=== PATIENT | male | born 1990 | race Caucasian/White ===

== ENCOUNTER 2017-01-02 21:14 | Emergency (ER) | payer SELFPAY ==
[2017-01-02 21:21] VITALS: PULSE 131; BMI 42.5
[2017-01-02] MEDS ORDERED: ACETAMINOPHEN 500 MG TABLET (FP) PO ONE (21:33)
--- NOTE | 2017-01-02 21:34 | PDOC ---
Rapid Medical Evaluation Chief Complaint: SIRS, Suspected/Possible Time Seen by Provider: 01/02/17 21:31 Medical Evaluation: Vital Signs Temp Pulse Resp BP Pulse Ox 102.5 F H 131 H 24 152/85 96 01/02/17 21:16 01/02/17 21:16 01/02/17 21:16 01/02/17 21:16 01/02/17 21:16 01/02/17 21:31 I have performed a brief in-person evaluation of this patient. The patient presents with a chief complaint of: Fever, Cough, Headache since Sunday. Pertinent physical exam findings: (-) Nuchal Rigidity, and Photophobia I have ordered the following: Influenza swab. Tylenol 975mg
[2017-01-02 22:19] LABS: BASOPHIL 0.5 % (0-2.0); EOSINOPHIL 0.3 % (0-4.5); MCH 30.3 pg (25.7-33.7); MCHC 34.5 g/dl (32.0-35.9); MEAN PLT VOLUME 8.2 fl (7.5-11.1); PLATELET COUNT 240 K/MM3 (134-434); RDW 13.7 % (11.9-15.9); WHITE BLOOD COUNT 7.6 K/mm3 (4.0-10.0)
[2017-01-02] MEDS ORDERED: SODIUM CHLORIDE 1,000 ML IV STA (23:14)
[2017-01-02] MEDS ORDERED: IBUPROFEN 400 MG TABLET (FP) PO ONE ×2 (23:17→23:45)
[2017-01-02] MEDS ORDERED: OSELTAMIVIR PHOSPHATE 75 MG CAPSULE PO ONE (23:17)
[2017-01-02 23:19] LABS: ALBUMIN 4.1 g/dl (3.4-5.0); ANION GAP 11 (8-16); CALCIUM 9.1 mg/dL (8.5-10.1); CO2 27 mmol/L (21-32); CREATININE 1.1 mg/dL (0.7-1.3); GLUCOSE,RANDOM 121 mg/dL (74-106); SGOT/AST 48 U/L (15-37); SGPT/ALT 98 U/L (12-78)
[2017-01-02 23:21] LABS: ALK PHOS 141 U/L (45-117); BILIRUBIN,TOTAL 0.4 mg/dL (0.2-1.0); TOT PROT 7.6 g/dl (6.4-8.2)
--- NOTE | 2017-01-02 23:23 | PDOC ---
History of Present Illness - General Chief Complaint: SIRS, Suspected/Possible Stated Complaint: FEVER Time Seen by Provider: 01/02/17 22:43 History Source: Patient Exam Limitations: No Limitations - History of Present Illness Initial Comments: 01/02/17 23:18 26yo Male patient w/ PmHx: Morbid Obesity presents to ED c/o fever on and off since Sunday, 104/103.0 oral temp, h/a, coughing, increase phlegm. Patient reports taking Tylenol OTC with no relief. He reports symptoms remained constant so he wanted to be evaluated. He denies CP, Abd pain, Back pain, n/v/d , diff breathing, rash, or any other complaints at this time. Timing/Duration: reports: constant. denies: just prior to arrival, other, changing over time, getting worse, gone now, intermittent, week, yesterday, this afternoon, this evening, this morning Severity: reports: moderate. denies: mild, severe Episode Description: See HPI Possible Cause: No: no prior episodes, other, allergen exposure, chronic episodes, frequent episodes, illness exposure, irritant gases exposure, occasional episodes, smoke exposure, unknown cause Modifying Factors: improves with: coughing, rest. worse with: activity, albuterol inhaler, albuterol nebulizer, antibiotics, lying down, oxygen, other Associated Symptoms: reports: cough, fever/chills, headache. denies: denies symptoms, chest pain/soreness, dizziness, earache, facial pain, lightheadedness , muscle aches, nasal congestion, nasal drainage, shortness of breath, sinus infection, sore throat, wheezing, other Aspirin Received prior to arrival: No: no aspirin today, unknown, 81 mg x 1, 81 mg x 2, 81 mg x 3, 81 mg x 4, 325 mg x 1, provided at home, provided by EMS, provided by ED Past History - Travel Traveled outside of the country in the last 30 days: No Close contact w/someone who was outside of country & ill: No - Past Medical History Allergies/Adverse Reactions: Allergies Allergy/AdvReac Type Severity Reaction Status Date / Time No Known Allergies Allergy Verified 01/02/17 21:37 Home Medications: Ambulatory Orders Albuterol Sulfate Inhaler - [Ventolin Hfa Inhaler -] 1 - 2 inh PO Q4H PRN #1 inhaler 01/03/17 Amoxicillin/Potassium Clav [Augmentin 875-125 Tablet] 1 each PO Q12H #20 tablet 01/03/17 COPD: No - Suicide/Smoking/Psychosocial Hx Smoking History: Former smoker Have you smoked in the past 12 months: No Information on smoking cessation initiated: No Hx Alcohol Use: No Drug/Substance Use Hx: No Substance Use Type: None Respiratory Specific PMHX - Complaint Specific PMHX Angina: No Bronchitis: No Pneumonia: No Pulmonary Embolus: No TB (Tuberculosis): No Review of Systems - Review of Systems Able to Perform ROS?: Yes Is the patient limited Ghanaian proficient: No Constitutional: Yes: Fever. No: Chills Respiratory: Yes: Cough, Productive cough Cardiac (ROS): No: Chest Pain ABD/GI: No: Diarrhea, Nausea, Poor Appetite, Poor Fluid Intake, Vomiting, Abdominal cramping Musculoskeletal: No: Back Pain, Muscle Weakness, Neck Pain Neurological: Yes: Headache All Other Systems: Reviewed and Negative *Physical Exam - Vital Signs Last Vital Signs Temp Pulse Resp BP Pulse Ox 102.5 F H 131 H 24 152/85 96 01/02/17 21:16 01/02/17 21:16 01/02/17 21:16 01/02/17 21:16 01/02/17 21:16 - Physical Exam General Appearance: Yes: Nourished, Appropriately Dressed HEENT: positive: EOMI, ISHA, Normal ENT Inspection, Normal Voice, Symmetrical, TMs Normal, Pharynx Normal. negative: Pharyngeal Erythema, Tonsillar Exudate, Tonsillar Erythema, Nasal Congestion, Rhinorrhea, Sinus Tenderness, Orbits, TM Bulging, TM Dull, TM Erythema Neck: positive: Trachea midline, Normal Thyroid, Supple. negative: Rigid, Stridor, Lymphadenopathy (R), Lymphadenopathy (L), Tender lateral, Tender midline Respiratory/Chest: positive: Lungs Clear, Normal Breath Sounds. negative: Chest Tender, Respiratory Distress, Accessory Muscle Use, Labored Respiration, Rapid RR, Decreased Breath Sounds, Paradoxal Breathing, Crackles, Rales, Stridor , Wheezing Cardiovascular: positive: Tachycardia. negative: Regular Rhythm, Regular Rate Gastrointestinal/Abdominal: positive: Normal Bowel Sounds, Soft, Distended. negative: Increased Bowel Sounds, Guarding, Rebound, Tenderness, Hernia, Mass Musculoskeletal: positive: Normal Inspection. negative: CVA Tenderness, CVA Tenderness (R), CVA Tenderness (L), Decreased Range of Motion, Vertebral Tenderness Extremity: positive: Normal Capillary Refill, Normal Inspection, Normal Range of Motion. negative: Pelvis Stable, Pedal Edema, Swelling, Calf Tenderness, Erythema, Inflammation Integumentary: positive: Normal Color, Dry, Warm Neurologic: positive: manager small business II-XII NML intact, Fully Oriented, Alert, Normal Mood/ Affect, Normal Response, Motor Strength 06/09 ED Treatment Course - LABORATORY CBC & Chemistry Diagram: 01/02/17 21:33 01/02/17 22:00 - ADDITIONAL ORDERS Additional order review: 01/02/17 22:00 Influenza Types A,B Antigen (KATHY) - Final Nasopharyngeal Swab - Final 01/02/17 21:33 RBC 4.91 MCV 88.0 MCHC 34.5 RDW 13.7 MPV 8.2 Neutrophils % 79.0 Lymphocytes % 11.5 Monocytes % 8.7 Eosinophils % 0.3 Basophils % 0.5 - Medications Given in the ED: ED Medications Discontinued Medications Generic Name Dose Route Start Last Admin Trade Name Freq PRN Reason Stop Dose Admin Acetaminophen 1,000 mg 01/02/17 21:33 01/02/17 21:36 Tylenol - PO 01/02/17 21:34 1,000 mg ONCE ONE Administration *DC/Admit/Observation/Transfer Diagnosis at time of Disposition: Pneumonia and influenza - Discharge Dispostion Disposition: HOME Condition at time of disposition: Improved Admit: No - Prescriptions Prescriptions: Albuterol Sulfate Inhaler - [Ventolin Hfa Inhaler -] 1 - 2 inh PO Q4H PRN #1 inhaler PRN Reason: Trouble Breathing Amoxicillin/Potassium Clav [Augmentin 875-125 Tablet] 1 each PO Q12H #20 tablet - Referrals Referrals: Kevin Mcneill MD [Staff Physician] - - Patient Instructions Printed Discharge Instructions: DI for Atypical Pneumonia Additional Instructions: Follow up with Dr. Mcneill (Internal Medicine) next week. Call to schedule appointment. Take medications as prescribed. Return if symptoms worsen or any concerns for further evaluation. Print Language: SWEDISH - Post Discharge Activity Forms/Work/School Notes: Back to Work
[2017-01-02] MEDS ORDERED: OSELTAMIVIR PHOSPHATE 75 MG CAPSULE ONE (23:45)
[2017-01-03 00:01] VITALS: BP 161/84; TEMP 102.2
[2017-01-03 00:12] LABS: URINE APPEARANCE CLEAR; URINE BILIRUBIN NEGATIVE (NEGATIVE); URINE BLOOD 1+ (NEGATIVE); URINE COLOR ORANGE; URINE GLUCOSE (UA) NEGATIVE (NEGATIVE); URINE KETONE TRACE (NEGATIVE); URINE NITRITE NEGATIVE (NEGATIVE); URINE UROBILINOGEN 0.2 mg/dL (0.2-1.0)
[2017-01-03 00:21] LABS: URINE PROTEIN 1+ (NEGATIVE)
[2017-01-03] MEDS ORDERED: AMOX TR/POT CLAV 875MG/125MG TABLETS (FP) PO ONE (00:53)
--- NOTE | 2017-01-03 00:55 | PDOC ---
*Physical Exam - Vital Signs Last Vital Signs Temp Pulse Resp BP Pulse Ox 102.2 F H 131 H 24 161/84 99 01/02/17 22:35 01/02/17 22:35 01/02/17 22:35 01/02/17 22:35 01/02/17 22:35 ED Treatment Course - LABORATORY CBC & Chemistry Diagram: 01/02/17 21:33 01/02/17 22:00 - ADDITIONAL ORDERS Additional order review: Laboratory Results 01/02/17 01/02/17 01/02/17 23:38 22:40 22:00 Sodium 137 Potassium 4.1 Chloride 99 Carbon Dioxide 27 Anion Gap 11 BUN 8 Creatinine 1.1 Creat Clearance w eGFR > 60 Random Glucose 121 H Lactic Acid 1.4 Calcium 9.1 Total Bilirubin 0.4 AST 48 H ALT 98 H Alkaline Phosphatase 141 H Total Protein 7.6 Albumin 4.1 Urine Color [place] Urine Appearance Clear Urine pH 6.0 Ur Specific [place] 1.025 Urine Protein 1+ H Urine Glucose (UA) Negative Urine Ketones Trace H Urine Blood 1+ H Urine Nitrite Negative Urine Bilirubin Negative Urine Urobilinogen 0.2 01/02/17 22:00 Influenza Types A,B Antigen (KATHY) - Final Nasopharyngeal Swab - Final 01/02/17 21:33 RBC 4.91 MCV 88.0 MCHC 34.5 RDW 13.7 MPV 8.2 Neutrophils % 79.0 Lymphocytes % 11.5 Monocytes % 8.7 Eosinophils % 0.3 Basophils % 0.5 - Medications Given in the ED: ED Medications Discontinued Medications Generic Name Dose Route Start Last Admin Trade Name Freq PRN Reason Stop Dose Admin Acetaminophen 1,000 mg 01/02/17 21:33 01/02/17 21:36 Tylenol - PO 01/02/17 21:34 1,000 mg ONCE ONE Administration Sodium Chloride 1,000 mls @ 1,000 mls/hr 01/02/17 23:14 01/02/17 23:59 Normal Saline - IV 01/03/17 00:13 1,000 mls/hr ASDIR STA Administration Ibuprofen 800 mg 01/02/17 23:17 01/02/17 23:59 Motrin - PO 01/02/17 23:18 800 mg ONCE ONE Administration Oseltamivir Phosphate 75 mg 01/02/17 23:17 01/03/17 00:00 Tamiflu - PO 01/02/17 23:18 75 mg ONCE ONE Administration Medical Decision Making - Medical Decision Making 01/03/17 00:55 agree with care from KETTLE SKIMMER Ronni *DC/Admit/Observation/Transfer Diagnosis at time of Disposition: Pneumonia and influenza - Discharge Dispostion Disposition: HOME Condition at time of disposition: Improved - Prescriptions Prescriptions: Albuterol Sulfate Inhaler - [Ventolin Hfa Inhaler -] 1 - 2 inh PO Q4H PRN #1 inhaler PRN Reason: Trouble Breathing Amoxicillin/Potassium Clav [Augmentin 875-125 Tablet] 1 each PO Q12H #20 tablet - Referrals Referrals: Kevin Mcneill MD [Staff Physician] - - Patient Instructions Printed Discharge Instructions: DI for Atypical Pneumonia Additional Instructions: Follow up with Dr. Mcneill (Internal Medicine) next week. Call to schedule appointment. Take medications as prescribed. Return if symptoms worsen or any concerns for further evaluation. Print Language: PERSIAN - Post Discharge Activity Forms/Work/School Notes: Back to Work
[2017-01-03] MEDS ORDERED: CEFTRIAXONE 2 GM in DEXTROSE 5%-WATER - 100 ML IVPB ONE (00:58)
[2017-01-03] MEDS ORDERED: SODIUM CHLORIDE 500 ML IV STA (00:58)
[2017-01-03] MEDS ORDERED: AZITHROMYCIN IVPB 500 MG in DEXTROSE 5%-WATER - 250 ML IVPB ONE (00:58)
[2017-01-03] MEDS ORDERED: CEFTRIAXONE 1 GM/50 ML BAG ONE (02:08)
[2017-01-03 02:35] LABS: CALCIUM OXALATE CRYSTALS FEW /hpf (NONE SEEN); URINE MUCUS RARE; URINE RBC 19 /hpf (0-3); URINE WBC 2 /hpf (3-5)
[2017-01-03] MEDS ORDERED: AZITHROMYCIN IVPB 250 ML IVPB ONE (03:11)
[2017-01-03 09:07] LABS: URINE LEUK ESTERASE Negative (NEGATIVE)
== END 2017-01-03 03:56 | disposition home or self-care (01) ==
LOC: JER 21:14
DX: J11.00 Influenza due to unidentified influenza virus with unspecified type of pneumonia (principal)
CPT/HCPCS: 36415; 71020-TC; 80053; 81003; 81015; 83605; 85025; 87804; 99283-25

== ENCOUNTER 2019-02-21 21:13 | Emergency (ER) | payer OTHER ==
[2019-02-21 21:20] VITALS: TEMP 98; BMI 52.4
--- NOTE | 2019-02-21 21:22 | PDOC ---
Rapid Medical Evaluation Chief Complaint: Pain Time Seen by Provider: 02/21/19 21:18 Medical Evaluation: Allergies Allergy/AdvReac Type Severity Reaction Status Date / Time No Known Allergies Allergy Verified 01/02/17 21:37 02/21/19 21:18 I have performed a brief in-person evaluation of this patient. The patient presents with a chief complaint of:purulent discharge from umbilicus x 1 year w/ upcoming surgery f/u but wants to come to ED to get it checked per pt. No f/c Pertinent physical exam findings:stable, defer to ED I have ordered the following:nothing The patient will proceed to the ED for further evaluation Discharge Disposition - Diagnosis Umbilical discharge - Referrals - Patient Instructions - Post Discharge Activity
--- NOTE | 2019-02-21 23:42 | PDOC ---
History of Present Illness - General Chief Complaint: Pain Stated Complaint: ABD PAIN Time Seen by Provider: 02/21/19 21:18 - History of Present Illness Initial Comments: The pt is a 28M w/ no reported PMH who presents for bloody drainage at the umbilicus. He reports a year purulent discharge that will intermittently drain serous versus purulent drainage. Today he noticed bloody fluid and thus decided to be evaluated. He denies fevers/chills, abdominal pain, N/V/D, blood in his stool, dysuria, hematuria Pt denies felling any mass or swelling in his abdomen. Denies feculent or urinary type discharge from his umbilicus PMH: Denies PSH: Denies Meds: Denies SH: Denies x3 02/21/19 23:49 Past History - Past Medical History Allergies/Adverse Reactions: Allergies Allergy/AdvReac Type Severity Reaction Status Date / Time No Known Allergies Allergy Verified 02/21/19 21:19 Home Medications: Ambulatory Orders Albuterol Sulfate Inhaler - [Ventolin Hfa Inhaler -] 1 - 2 inh PO Q4H PRN #1 inhaler 01/03/17 Amoxicillin/Potassium Clav [Augmentin 875-125 Tablet] 1 each PO Q12H #20 tablet 01/03/17 Clindamycin [Cleocin -] 300 mg PO Q6HPO #28 capsule 02/22/19 COPD: No - Psycho Social/Smoking Cessation Hx Smoking History: Former smoker Have you smoked in the past 12 months: No Information on smoking cessation initiated: No Hx Alcohol Use: No Drug/Substance Use Hx: No Substance Use Type: None Review of Systems - Review of Systems Able to Perform ROS?: Yes Comments:: GENERAL/CONSTITUTIONAL: No fever or chills. No weakness HEAD, EYES, EARS, NOSE AND THROAT: No change in vision. No change in hearing. No sore throat CARDIOVASCULAR: No chest pain or shortness of breath RESPIRATORY: Denies cough, hemoptysis GASTROINTESTINAL: No nausea, vomiting, or constipation GENITOURINARY: No dysuria, frequency, or change in urination MUSCULOSKELETAL: No joint or muscle swelling or pain. No neck or back pain NEUROLOGIC: No headache, vertigo, loss of consciousness, or change in strength/ sensation ENDOCRINE: No increased thirst. No abnormal weight change HEMATOLOGIC/LYMPHATIC: No anemia, easy bleeding, or history of blood clots ALLERGIC/IMMUNOLOGIC: No hives or skin allergy 02/21/19 23:37 Is the patient limited Czech proficient: No *Physical Exam - Vital Signs Last Vital Signs Temp Pulse Resp BP Pulse Ox 98 F 77 18 143/82 99 02/21/19 21:16 02/21/19 21:16 02/21/19 21:16 02/21/19 21:16 02/21/19 21:16 - Physical Exam GENERAL: Awake, alert, and oriented to person/place/time, in no acute distress HEAD: No signs of trauma, normoc ephalic, atraumatic EYES: PERRLA, EOMI, sclera anicteric, conjunctiva clear ENT: Hearing grossly normal, nares patent, oropharynx clear without exudates. Moist mucosa LUNGS: No distress, speaks in full sentences, clear to auscultation bilaterally HEART: Regular rate and rhythm, normal S1 and S2, no murmurs appreciated, peripheral pulses normal and equal bilaterally ABDOMEN: Soft, protuberant, small amount of blood noted at umbilicus w/o active hemorrhage, no tracking fistula found, no purulent material expressible, nontender, normoactive bowel sounds. No guarding, no rebound EXTREMITIES: Normal inspection, Normal range of motion, no edema. No clubbing or cyanosis NEUROLOGICAL: Cranial nerves II through XII grossly intact. Normal speech, normal gait, no focal sensorimotor deficits SKIN: Warm, Dry 02/21/19 23:41 ED Treatment Course - LABORATORY CBC & Chemistry Diagram: 02/22/19 00:00 02/22/19 00:00 - RADIOLOGY Radiograph Interpretation: THIS IS A PRELIMINARY REPORT FROM [facility] DATE OF SERVICE: 2019-02-22 00:46:01 EXAM: ABDOMEN \T\ PELVIS CT WITH CONTR FINDINGS: Lung bases are clear. The visualized cardiac chambers are normal size and configuration. Normal liver, gallbladder, pancreas, spleen, adrenal glands and kidneys. The stomach and abdominal small and large bowel are normal. There is no aortic aneurysm. There is no significant retroperitoneal lymphadenopathy. There is a tiny fat-containing umbilical hernia with mild soft tissue edema which could represent cellulitis. No abscess or peritoneal involvement. The pelvic small and large bowel are normal. Appendix is normal. The urinary bladder and prostate gland are normal. No pelvic free fluid is identified. There is no significant pelvic lymphadenopathy. IMPRESSION: Tiny fat-containing umbilical hernia and possible mild umbilical cellulitis. 02/22/19 02:31 Medical Decision Making - Medical Decision Making The pt is a 28M w/ no reported PMH who presents for bloody drainage at the umbilicus for 1 day (with 1 year of intermittent purulent bloody drainage). ED Course CMP, CBC, ESR, Coags CT A&P Pt has an appointment established with a general surgeon on 03/03/2019 02/21/19 23:42 CT w/ tiny fat containing umbilical hernia -Pt w/ established general surgery f/u Umbilical cellulitis -Clindamycin 600mg IV once given in ED -Rx for Clinda sent to pt's pharmacy WBC unremarkable No anemia Lytes wnl No HARISH LFTs mildly elevated -Results discussed with patient and need for primary care follow up emphasized Plan for D/C w/ PCP and general surgery f/u Discharge instructions and return precautions given Patient in agreement and verbalized understanding Dispo: Home 02/22/19 02:32 Discharge - Discharge Information Problems reviewed: Yes Clinical Impression/Diagnosis: Umbilical discharge Umbilical hernia Qualifiers: Obstruction and gangrene presence: without obstruction or gangrene Qualified Code(s): K42.9 - Umbilical hernia without obstruction or gangrene Cellulitis Qualifiers: Site of cellulitis: trunk Site of cellulitis of trunk: abdominal wall Qualified Code(s): L03.311 - Cellulitis of abdominal wall Condition: Stable Disposition: HOME - Admission No - Follow up/Referral Referrals: Aga Ryan MD [Primary Care Provider] - - Patient Discharge Instructions Additional Instructions: You were seen in the Emergency Department for evaluation of umbilical discharge. Your CT scan was notable for a tiny umbilical hernia without any bowel involvement. You also have a small skin infection. A prescription for Clindamycin was sent to your pharmacy. Take 4 times a day for 7 days. Review the handout provided at discharge. Follow up with your primary care doctor within a week. At that appointment be sure to tell him that your liver enzymes were slightly elevated and should be trended/followed up. Maintain your follow up with your surgeon that you have scheduled. Return to the Emergency Department if you develop fevers, chest pain, trouble breathing, severe abdominal pain, bleeding that will not stop, vomiting, blood in your stool, worsening symptoms, or any new/concerning symptoms. - Post Discharge Activity
--- NOTE | 2019-02-21 23:48 | PDOC ---
Attending Attestation - Resident Resident Name: Gonsalo Phillips - ED Attending Attestation I have performed the following: I have examined & evaluated the patient, The case was reviewed & discussed with the resident, I agree w/resident's findings & plan - HPI HPI: 02/21/19 23:50 Pt has a small umbilical wound, and although he has been dealing with this on and off for a year, today he has serosanguinous discharge and he wants to make sure everything is ok. He has no fever and he is able to eat. He has no heavy lifting today; however, he is morbidly obese. Pt has no other complaints. He appears comfortable. He has no systemic symptoms. - Physicial Exam PE: 02/22/19 02:51 Pt is afebrile; HEENT normal heart S1S2 RRR no abd pain. No periumbilical pain or masses; within the umbilicus, pt has reddish denuded tissue and small discharge. No pus. Normal BS; obese abdomen; mild cellulitis 1 inch diameter surrounding the umbilicus no flank pain Ext normal; no edema - Medical Decision Making 02/22/19 02:34 Pt may have a hernia; pt will be sent for a CT to r/o fat hernia vs actual bowel hernia Pt will have labs. Patient Name: CHRISTAL BERGMAN THIS IS A PRELIMINARY REPORT FROM [facility] DATE OF SERVICE: 2019-02-22 00:46:01 IMAGES: [id number] EXAM: ABDOMEN \T\ PELVIS CT WITH CONTR HISTORY: Umbilical pain. Possible hernia. COMPARISON: None. FINDINGS: Lung bases are clear. The visualized cardiac chambers are normal size and configuration. Normal liver, gallbladder, pancreas, spleen, adrenal glands and kidneys. The stomach and abdominal small and large bowel are normal. There is no aortic aneurysm. There is no significant retroperitoneal lymphadenopathy. There is a tiny fat-containing umbilical hernia with mild soft tissue edema which could represent cellulitis. No abscess or peritoneal involvement. The pelvic small and large bowel are normal. Appendix is normal. The urinary bladder and prostate gland are normal. No pelvic free fluid is identified. There is no significant pelvic lymphadenopathy. IMPRESSION: Tiny fat-containing umbilical hernia and possible mild umbilical cellulitis Pt received a dose of clinda IV and he has normal CBC and comp. He will go home with oral clinda. F/u with surgery clinic as previously scheduled. 02/22/19 02:53 stable for d/c
[2019-02-22] MEDS ORDERED: CLINDAMYCIN 600MG PREMIX IVPB 600 MG/50 ML BAG IVPB ONE ×2 (00:07→00:11)
[2019-02-22 00:58] LABS: HEMATOCRIT 41.1 % (35.4-49); MCHC 34.2 g/dl (32.0-35.9); MEAN CELL VOLUME 87.8 fl (80-96); MEAN PLT VOLUME 8.6 fl (7.5-11.1); PLATELET COUNT 332 K/MM3 (134-434); RBC 4.68 M/mm3 (4.00-5.60); RDW 13.6 % (11.9-15.9); WHITE BLOOD COUNT 10.6 K/mm3 (4.0-10.0)
[2019-02-22 01:11] LABS: INR 1.04 (0.83-1.09); PROTHROMBIN TIME (PATIENT) 12.3 SEC (9.7-13.0)
[2019-02-22 01:14] LABS: ACTIVATED PTT 34.1 SECONDS (25.2-36.5)
[2019-02-22 01:23] LABS: ALBUMIN 4.2 g/dl (3.4-5.0); BILIRUBIN,TOTAL 0.2 mg/dL (0.2-1); BLOOD UREA NITROGEN 13.7 mg/dL (7-18); CALCIUM 9.4 mg/dL (8.5-10.1); CREATININE 0.8 mg/dL (0.55-1.3); POTASSIUM 4.3 mmol/L (3.5-5.1)
[2019-02-22 04:41] VITALS: BP 134/85; PULSE 72
== END 2019-02-22 03:30 | disposition home or self-care (01) ==
LOC: JER 21:13
DX: L03.311 Cellulitis of abdominal wall (principal); K42.9 Umbilical hernia without obstruction or gangrene
CPT/HCPCS: 36415; 74177-TC; 80053; 85027; 85610; 85651; 85730; 96365; 99283-25; Q9967